=== PATIENT | male | born 1985 | race American Indian/Alaskan Native ===

== ENCOUNTER 2020-07-15 00:38 | Emergency (ER) | payer SELFPAY ==
--- NOTE | 2020-07-15 01:31 | Emergency Department Report ---
ED General Adult HPI - General Chief complaint: Nausea/Vomiting/Diarrhea Stated complaint: VOMITING Time Seen by Provider: 07/15/20 01:27 Source: patient, EMS Mode of arrival: Stretcher Limitations: No Limitations - History of Present Illness Initial comments: Patient 34-year-old -[place] male who presents for abdominal cramping with a nausea vomiting diarrhea x2 days. Patient denies fever or chills. There is no cough or shortness of breath, no chest pain or back pain. Patient denies dysuria frequency or urgency. Patient does have secondary complaint of recurring sinus and ear infection. Patient states symptoms are exacerbated by activity. Symptoms are relieved by nothing tried. - Related Data Previous Rx's Medication Instructions Recorded Last Taken Type Amoxicillin/Potassium Clav 1 each PO BID 7 Days #17 tablet 07/15/20 Unknown Rx [Augmentin 875-125 Tablet] Ondansetron [Zofran Oral Liq] 4 mg PO ONCE PRN #12 oralsyr 07/15/20 Unknown Rx diphenhydrAMINE [Benadryl CAP] 25 mg PO Q8HR PRN #12 capsule 07/15/20 Unknown Rx Allergies Allergy/AdvReac Type Severity Reaction Status Date / Time No Known Allergies Allergy Unverified 07/15/20 00:52 ED Review of Systems ROS: Stated complaint: VOMITING Other details as noted in HPI Constitutional: malaise Eyes: denies: eye pain, eye discharge, vision change ENT: ear pain (right ), congestion Respiratory: denies: cough, shortness of breath, wheezing Cardiovascular: denies: chest pain, palpitations Endocrine: no symptoms reported Gastrointestinal: abdominal pain, nausea, vomiting, diarrhea. denies: constipation, melena Genitourinary: denies: urgency, dysuria, frequency, hematuria, discharge Musculoskeletal: denies: back pain, joint swelling, arthralgia Skin: denies: rash, lesions Neurological: vertigo. denies: headache, weakness, paresthesias Psychiatric: denies: anxiety, depression Hematological/Lymphatic: denies: easy bleeding, easy bruising ED Past Medical Hx - Past Medical History Additional medical history: anemia, scolosis - Surgical History Additional Surgical History: r foot surgery - Social History Smoking Status: Current Every Day Smoker - Medications Home Medications: Home Medications Medication Instructions Recorded Confirmed Last Taken Type Amoxicillin/Potassium Clav 1 each PO BID 7 Days #17 tablet 07/15/20 Unknown Rx [Augmentin 875-125 Tablet] Ondansetron [Zofran Oral Liq] 4 mg PO ONCE PRN #12 oralsyr 07/15/20 Unknown Rx diphenhydrAMINE [Benadryl CAP] 25 mg PO Q8HR PRN #12 capsule 07/15/20 Unknown Rx ED Physical Exam - General Limitations: No Limitations General appearance: alert, in no apparent distress - Head Head exam: Present: normocephalic, normal inspection - Eye Eye exam: Present: EOMI Pupils: Present: normal accommodation - ENT ENT exam: Present: mucous membranes moist, normal external ear exam - Expanded ENT Exam Expanded TM/Canal exam: Erythema: Right TM, Effusion: Right TM Throat exam: Positive: normal inspection. Negative: tonsillar erythema, tonsillomegaly, tonsillar exudate - Neck Neck exam: Present: normal inspection, full ROM. Absent: tenderness, lymphadenopathy - Respiratory Respiratory exam: Present: normal lung sounds bilaterally. Absent: respiratory distress, wheezes, stridor, chest wall tenderness - Cardiovascular Cardiovascular Exam: Present: regular rate, normal rhythm, normal heart sounds. Absent: systolic murmur, diastolic murmur, rubs, gallop - GI/Abdominal GI/Abdominal exam: Present: soft, normal bowel sounds. Absent: distended, tenderness, guarding, rebound, rigid, bruit, hernia - Rectal Rectal exam: Present: deferred - Extremities Exam Extremities exam: Present: normal inspection, full ROM. Absent: tenderness - Back Exam Back exam: Present: normal inspection, full ROM. Absent: tenderness, CVA tenderness (R), CVA tenderness (L) - Neurological Exam Neurological exam: Present: alert, oriented X3, CN II-XII intact, normal gait - Psychiatric Psychiatric exam: Present: normal affect, normal mood - Skin Skin exam: Present: warm, dry, intact, normal color. Absent: rash ED Medical Decision Making - Lab Data Result diagrams: 07/15/20 01:26 07/15/20 01:26 Labs 07/15/20 07/15/20 01:26 01:26 WBC 6.6 RBC 4.43 Hgb 14.4 Hct 42.3 MCV 96 H MCH 33 H MCHC 34 RDW 13.5 Plt Count 167 Lymph % (Auto) 29.9 [place] % (Auto) 7.1 Eos % (Auto) 0.5 Baso % (Auto) 0.4 Lymph # (Auto) 2.0 [place] # (Auto) 0.5 Eos # (Auto) 0.0 Baso # (Auto) 0.0 Seg Neutrophils % 62.1 Seg Neutrophils # 4.1 Sodium 141 Potassium 3.7 Chloride 105.0 Carbon Dioxide 26 Anion Gap 14 BUN 8 L Creatinine 0.8 Estimated GFR > 60 BUN/Creatinine Ratio 10 Glucose 96 Calcium 9.4 Total Bilirubin 1.20 AST 22 ALT 15 Alkaline Phosphatase 60 Total Protein 7.1 Albumin 4.8 Albumin/Globulin Ratio 2.1 Lipase 13 - Medical Decision Making Labs are normal, there is no fever or chills, patient tolerating p.o. intake without nausea vomiting at this time. Plan treat for AOM/ Sinusitis, continue to hydrate as directed, follow-up with primary care doctor in 2 to 3 days. Return toED if symptoms worsen. Patient verbalized agreement and understanding discharge plan. Patient DC'd home in stable condition at this time. Critical care attestation.: If time is entered above; I have spent that time in minutes in the direct care of this critically ill patient, excluding procedure time. ED Disposition Clinical Impression: Vertigo AOM (acute otitis media) Qualifiers: Otitis media type: serous Laterality: right Recurrence: recurrent Qualified Code(s): H65.04 - Acute serous otitis media, recurrent, right ear Disposition: DC-01 TO HOME OR SELFCARE Is pt being admited?: No Does the pt Need Aspirin: No Condition: Stable Instructions: Otitis Media, Adult, [id number], Dizziness, [id number], Rehydration, Adult Prescriptions: Amoxicillin/Potassium Clav [Augmentin 875-125 Tablet] 1 each PO BID 7 Days #17 tablet diphenhydrAMINE [Benadryl CAP] 25 mg PO Q8HR PRN #12 capsule PRN Reason: dizzines Ondansetron [Zofran Oral Liq] 4 mg PO ONCE PRN #12 oralsyr PRN Reason: nuase and vomiting Referrals: DESMOND WARD MD [Staff Physician] - 3-5 Days Forms: Work/School Release Form(ED)
[2020-07-15 01:41] LABS: Basophils % (Auto) 0.4 % (0.0-1.8); Eosinophils % (Auto) 0.5 % (0.0-4.3); Hematocrit 42.3 % (35.5-45.6); Hemoglobin 14.4 gm/dl (11.8-15.2); Lymphocytes % (Auto) 29.9 % (13.4-35.0); Mean Corpuscular HGB Conc 34 % (32-34); Mean Corpuscular Volume 96 fl (84-94); Monocytes # (Auto) 0.5 K/mm3 (0.0-0.8); Monocytes % (Auto) 7.1 % (0.0-7.3); Platelet Count 167 K/mm3 (140-440); Red Blood Count 4.43 M/mm3 (3.65-5.03); Red Cell Distribution Width 13.5 % (13.2-15.2)
[2020-07-15 02:01] LABS: Alanine Aminotransferase 15 units/L (7-56); Albumin 4.8 g/dL (3.9-5); BUN/Creatinine Ratio 10; Blood Urea Nitrogen 8 mg/dL (9-20); Calcium 9.4 mg/dL (8.4-10.2); Hemolysis Index 4
[2020-07-15] MEDS ORDERED: ONDANSETRON 4 MG ODT TAB PO ONE (02:19)
[2020-07-15 03:54] VITALS: BP 100/68
== END 2020-07-15 03:00 | disposition home or self-care (01) ==
LOC: ED 00:38
DX: H66.90 Otitis media, unspecified, unspecified ear (principal); R42 Dizziness and giddiness; F17.200 Nicotine dependence, unspecified, uncomplicated; D64.9 Anemia, unspecified; Z79.899 Other long term (current) drug therapy; Z98.890 Other specified postprocedural states
CPT/HCPCS: 36415; 80053; 83690; 85025; Q0162

== ENCOUNTER 2020-09-14 17:00 | Emergency (ER) | payer SELFPAY ==
[2020-09-14 18:15] VITALS: BP 105/67
[2020-09-14] MEDS ORDERED: ONDANSETRON 4 MG/2 ML INJ IV ONE (21:04)
[2020-09-14] MEDS ORDERED: KETOROLAC 30 MG/1 ML INJ IV ONE (21:04)
[2020-09-14 21:31] LABS: Hematocrit 44.1 % (35.5-45.6); Hemoglobin 14.8 gm/dl (11.8-15.2); Mean Corpuscular HGB Conc 34 % (32-34); Mean Corpuscular Volume 99 fl (84-94); Platelet Count 140 K/mm3 (140-440); Red Blood Count 4.46 M/mm3 (3.65-5.03); Red Cell Distribution Width 13.6 % (13.2-15.2)
[2020-09-14 21:49] LABS: Alanine Aminotransferase 16 units/L (7-56); Albumin 4.5 g/dL (3.9-5); BUN/Creatinine Ratio 11; Blood Urea Nitrogen 9 mg/dL (9-20); Calcium 8.9 mg/dL (8.4-10.2); Hemolysis Index 5
[2020-09-14 22:05] LABS: Total Cells Counted 100
[2020-09-14 22:06] LABS: Platelet Estimate Consistent w Auto; RBC Morphology Normal
[2020-09-14 23:06] LABS: Bilirubin,Urine NEG (Negative); Blood,Urine NEG (Negative); Color,Urine Yellow (Yellow); Mucus,Urine FEW /HPF; Protein,Urine <15 mg/dL mg/dL (Negative); Urobilinogen,Urine < 2.0 mg/dL (<2.0)
[2020-09-14] MEDS ORDERED: cefTRIAXone/NS 1 GM/50 ML 1 GM/50 ML BAG IV ONE (23:59)
== END 2020-09-15 00:52 | disposition home or self-care (01) ==
LOC: ED 17:00
DX: N34.2 Other urethritis (principal); R10.32 Left lower quadrant pain; A64 Unspecified sexually transmitted disease; F17.200 Nicotine dependence, unspecified, uncomplicated; Z86.2 Personal history of diseases of the blood and blood-forming organs and certain disorders involving the immune mechanism; Z98.890 Other specified postprocedural states; Z79.899 Other long term (current) drug therapy
CPT/HCPCS: 36415; 74177; 80053; 81001; 83690; 85007; 85025; 87086; 96365; 96375; 99284; J0696; J1885; J2405; Q9967